=== PATIENT | female | born 1985 ===

== ENCOUNTER 2018-03-16 14:29 | Emergency (ER) | payer MEDICAID ==
[~2018-03-16] VITALS: Ht 167.6 cm; Wt 73.7 kg
[2018-03-16 15:47] LABS: BASOPHILS # (AUTO) 0.03 x10^3/uL (0-0.1); BASOPHILS % (AUTO) 0 % (0-1); EOSINOPHILS # (AUTO) 0.05 x10^3/uL (0-0.4); EOSINOPHILS % (AUTO) 0 % (1-7); LYMPHOCYTES # (AUTO) 0.91 x10^3/uL (1-3.4); LYMPHOCYTES % (AUTO) 6 % (22-44); MD NO; MEAN CORPUSCULAR HGB CONC 33.7 g/dL (32.4-35.8); MEAN CORPUSCULAR VOLUME 88.9 fL (80-100); MEAN PLATELET VOLUME 8.1 fL (7.4-10.4); MONOCYTES # (AUTO) 0.26 x10^3/uL (0.2-0.8); MONOCYTES % (AUTO) 2 % (2-9); NEUTROPHILS % (AUTO) 92 % (42-75); PLATELET COUNT 333 x10^3/uL (130-400); RED BLOOD COUNT 5.35 x10^6/uL (3.82-5.3); RED CELL DISTRIBUTION WIDTH 13.4 % (9.6-15.2)
[2018-03-16 15:55] LABS: ALANINE AMINOTRANSFERASE 36 U/L (12-78); ANION GAP 9 mmol/L (5-15); CALCIUM 8.8 mg/dL (8.5-10.1); CHLORIDE 105 mmol/L (98-107); CREATININE 0.81 mg/dL (0.55-1.02)
[2018-03-16 16:00] LABS: ALKALINE PHOSPHATASE 89 U/L (45-117); BILIRUBIN,TOTAL 0.4 mg/dL (0.2-1.0); TOTAL PROTEIN 8.5 g/dL (6.4-8.2)
[2018-03-16 16:17] LABS: MICROSCOPIC NOT IND
[2018-03-16 16:25] LABS: CULTURE INDICATED? NO
[2018-03-16] MEDS ORDERED: HYDROmorphone 2 MG/ML, 1ML IM ONE (16:30)
[2018-03-16] MEDS ORDERED: ONDANSETRON ODT 4 MG PO ONE (16:30)
[2018-03-16] MEDS ORDERED: HYDROmorphone 2 MG/ML, 1ML ONE (16:33)
[2018-03-16] MEDS ORDERED: ONDANSETRON 2MG/ML, 2ML ONE (16:33)
[2018-03-16] MEDS ORDERED: ONDANSETRON ODT 4 MG ONE (16:44)
[2018-03-16] MEDS ORDERED: DIAZEPAM 5 MG/ML, 2ML IM ONE (17:30)
[2018-03-16 18:35] VITALS: BP 115/57
== END 2018-03-16 18:39 | disposition home or self-care (01) ==
LOC: ED 17:17
DX: S39.012A Strain of muscle, fascia and tendon of lower back, initial encounter (principal); R19.7 Diarrhea, unspecified; R11.0 Nausea; F17.200 Nicotine dependence, unspecified, uncomplicated; X58.XXXA Exposure to other specified factors, initial encounter; Y93.89 Activity, other specified; Y92.89 Other specified places as the place of occurrence of the external cause; Y99.8 Other external cause status
CPT/HCPCS: 36415; 72110; 80053; 81003; 83690; 84703; 85025; 96372; 99284; J1170; Q0162